=== PATIENT | female | born 1990 | race American Indian/Alaskan Native ===

== ENCOUNTER 2018-12-20 02:55 | Emergency (ER) | payer MEDICAID ==
[2018-12-20 03:05] VITALS: BP 133/90
[2018-12-20] MEDS ORDERED: DUONEB *Not for PRN Use IH ONE (03:05)
[2018-12-20] MEDS ORDERED: SOLU-Medrol IM ONE (03:34)
[2018-12-20] MEDS ORDERED: PROVENTIL IH ONE (03:34)
--- NOTE | 2018-12-20 03:42 | Emergency Department Report ---
ED General Adult HPI - General Chief complaint: Adult Asthma Stated complaint: ASTHMA Time Seen by Provider: 12/20/18 03:20 Source: patient Mode of arrival: Ambulatory Limitations: No Limitations - History of Present Illness Initial comments: Patient is a 28-year-old -[place] female with a history of asthma and chronic tobacco use presents to the ED with complaint of acute onset of persistent nasal and sinus congestion, but cough with wheezing and shortness of breath for the last 2 days but it got worse in the last 2 hours. Patient states that although she has asthma, she does not have any inhaler or any other medications at home. Patient states that she has not been sleeping because of these symptoms. Patient denies dizziness, fever, chills, nausea, vomiting, chest pain, sore throat, abdominal pain, headache, back pain, dysuria, urinary frequency and urgency neck pain and change in vision. MD Complaint: dyspnea, nasal and sinus congestion, dry cough -: Sudden, days(s) (2) Location: chest Radiation: non-radiation Severity scale (0 -10): 5 Quality: dull Consistency: constant Improves with: none Worsens with: none Associated Symptoms: denies other symptoms, cough, shortness of breath. denies: confusion, chest pain, diaphoresis, fever/chills, headaches, loss of appetite, malaise, nausea/vomiting, rash, seizure, syncope, other Treatments Prior to Arrival: none - Related Data Previous Rx's Medication Instructions Recorded Last Taken Type ALBUTEROL Inhaler (OR & NICU) 1 - 2 puff IH Q6H PRN #1 inhalation 12/20/18 Unknown Rx [ProAir HFA Inhaler] Benzonatate [Tessalon Perles] 100 mg PO Q8HR #30 capsule 12/20/18 Unknown Rx Cetirizine HCl [ZyrTEC 10mg rapdis] 10 mg PO DAILY #30 tab.rapdis 12/20/18 Unknown Rx methylPREDNISolone [Medrol 4MG 4 mg PO DAILY #21 tab.ds.pk 12/20/18 Unknown Rx DOSEPAK (21 tabs)] Allergies Allergy/AdvReac Type Severity Reaction Status Date / Time shellfish Allergy Hives Uncoded 12/20/18 03:05 ED Review of Systems ROS: Stated complaint: ASTHMA Other details as noted in HPI Constitutional: denies: chills, fever Eyes: denies: eye pain, eye discharge, vision change ENT: congestion. denies: ear pain, throat pain Respiratory: cough, shortness of breath, wheezing. denies: SOB with exertion, SOB at rest Cardiovascular: denies: chest pain, palpitations Endocrine: no symptoms reported Gastrointestinal: denies: abdominal pain, nausea, diarrhea Genitourinary: denies: urgency, dysuria, frequency, hematuria, discharge Musculoskeletal: denies: back pain, joint swelling, arthralgia Skin: denies: rash, lesions Neurological: denies: headache, weakness, paresthesias Psychiatric: denies: anxiety, depression Hematological/Lymphatic: denies: easy bleeding, easy bruising ED Past Medical Hx - Past Medical History Previous Medical History?: Yes Hx Asthma: Yes Additional medical history: Eczema - Surgical History Past Surgical History?: No - Social History Smoking Status: Never Smoker Substance Use Type: Marijuana - Medications Home Medications: Home Medications Medication Instructions Recorded Confirmed Last Taken Type ALBUTEROL Inhaler (OR & NICU) 1 - 2 puff IH Q6H PRN #1 inhalation 12/20/18 Unknown Rx [ProAir HFA Inhaler] Benzonatate [Tessalon Perles] 100 mg PO Q8HR #30 capsule 12/20/18 Unknown Rx Cetirizine HCl [ZyrTEC 10mg rapdis] 10 mg PO DAILY #30 tab.rapdis 12/20/18 Unknown Rx methylPREDNISolone [Medrol 4MG 4 mg PO DAILY #21 tab.ds.pk 12/20/18 Unknown Rx DOSEPAK (21 tabs)] ED Physical Exam - General Limitations: No Limitations General appearance: alert, in no apparent distress - Head Head exam: Present: atraumatic, normocephalic, normal inspection - Eye Eye exam: Present: normal appearance, PERRL, EOMI. Absent: scleral icterus, conjunctival injection, nystagmus, periorbital swelling, periorbital tenderness, other Pupils: Present: normal accommodation - ENT ENT exam: Present: normal exam, normal orophraynx, mucous membranes moist, TM's normal bilaterally, normal external ear exam, other (Grossly congested nasal passages) - Neck Neck exam: Present: normal inspection, full ROM. Absent: tenderness, meningismus, lymphadenopathy - Respiratory Respiratory exam: Present: normal lung sounds bilaterally, wheezes. Absent: ra les, rhonchi, stridor, chest wall tenderness, accessory muscle use, prolonged expiratory - Cardiovascular Cardiovascular Exam: Present: regular rate, normal rhythm, normal heart sounds. Absent: systolic murmur, diastolic murmur, rubs, gallop - GI/Abdominal GI/Abdominal exam: Present: soft, normal bowel sounds. Absent: tenderness, guarding, rebound, hyperactive bowel sounds, hypoactive bowel sounds, mass, bruit, pulsatile mass - Rectal Rectal exam: Present: deferred - Extremities Exam Extremities exam: Present: normal inspection, full ROM, normal capillary refill. Absent: pedal edema, joint swelling - Back Exam Back exam: Present: normal inspection, full ROM. Absent: tenderness, CVA tenderness (R), CVA tenderness (L), muscle spasm, vertebral tenderness - Neurological Exam Neurological exam: Present: alert, oriented X3, CN II-XII intact, normal gait, reflexes normal - Psychiatric Psychiatric exam: Present: normal affect, normal mood - Skin Skin exam: Present: warm, dry, intact, normal color. Absent: rash ED Course Vital Signs 12/20/18 03:00 Temperature 98.1 F Pulse Rate 82 Respiratory 18 Rate Blood Pressure 133/90 O2 Sat by Pulse 98 Oximetry - Reevaluation(s) Reevaluation #1: 12/20/18 03:44 This is 28-year-old -[place] female with a history of chronic asthma and continues to smoke cigarettes, and presents to the ED with complaint of acute onset persistent shortness of breath, wheezing, dry cough and nasal and sinus congestion. Patient is alert and oriented 3 and is not in distress with normal vital signs. Patient was initially treated in the ED with DuoNeb, and additional nebulizer treatment and given in the ED with albuterol. Patient also received Solu-Medrol 125 mg intramuscular injection. On reevaluation, the patient's wheezing has resolved and patient was sent home on albuterol inhaler, Medrol Dosepak and advised to follow up with her primary care physician in 3-5 days for reevaluation, or return to the ED immediately if symptoms get worse. ED Medical Decision Making - Medical Decision Making This is 28-year-old -[place] female with a history of chronic asthma and continues to smoke cigarettes, and presents to the ED with complaint of acute onset persistent shortness of breath, wheezing, dry cough and nasal and sinus congestion. Patient is alert and oriented 3 and is not in distress with normal vital signs. Patient was initially treated in the ED with DuoNeb, and additional nebulizer treatment and given in the ED with albuterol. Patient also received Solu-Medrol 125 mg intramuscular injection. On reevaluation, the patient's wheezing has resolved and patient was sent home on albuterol inhaler, Medrol Dosepak and advised to follow up with her primary care physician in 3-5 days for reevaluation, or return to the ED immediately if symptoms get worse. - Differential Diagnosis acute asthma attack; acute URI; Acute asthmatic bronchitis Critical care attestation.: If time is entered above; I have spent that time in minutes in the direct care of this critically ill patient, excluding procedure time. ED Disposition Clinical Impression: Acute asthmatic bronchitis, Acute upper respiratory infection, Shortness of breath Disposition: DC-01 TO HOME OR SELFCARE Is pt being admited?: No Does the pt Need Aspirin: No Condition: Stable Instructions: Asthma (ED), Upper Respiratory Infection (ED), Acute Bronchitis (ED) Additional Instructions: Take medications with food, drink plenty of fluids and follow-up with the primary care physician in 5-7 days for reevaluation. Return to the ED immediately if symptoms get worse. Otherwise consider quitting to tobacco use for better control of your asthma Prescriptions: methylPREDNISolone [Medrol 4MG DOSEPAK (21 tabs)] 4 mg PO DAILY #21 tab.ds.pk ALBUTEROL Inhaler (OR & NICU) [ProAir HFA Inhaler] 1 - 2 puff IH Q6H PRN #1 inhalation PRN Reason: Shortness Of Breath Benzonatate [Tessalon Perles] 100 mg PO Q8HR #30 capsule Cetirizine HCl [ZyrTEC 10mg rapdis] 10 mg PO DAILY #30 tab.rapdis Referrals: LASHONDA JOE MD [Referring] - 3-5 Days Forms: Work/School Release Form(ED) Time of Disposition: 03:55 Print Language: [place]
== END 2018-12-20 04:52 | disposition home or self-care (01) ==
LOC: ED 02:55
DX: J45.901 Unspecified asthma with (acute) exacerbation (principal); J06.9 Acute upper respiratory infection, unspecified; F12.10 Cannabis abuse, uncomplicated
CPT/HCPCS: 94640; 96372; 99283; J2930